=== PATIENT | male | born 1980 | race Caucasian/White ===

== ENCOUNTER 2022-06-09 22:23 | Emergency (ER) | payer MEDICAID ==
[~2022-06-09] VITALS: Ht 175.3 cm; Wt 120.2 kg
[2022-06-09 22:29] VITALS: BP 115/50
--- NOTE | 2022-06-10 01:47 | NUR ---
Dr. Nugent examining patient.
[2022-06-10] MEDS ORDERED: cefTRIAXone 1,000 MG in LIDOCAINE MPF 1% 2.1 ML IM ONE (01:50)
[2022-06-10] MEDS ORDERED: LIDOCAINE MPF 1% 5 ML ONE (02:00)
[2022-06-10] MEDS ORDERED: cefTRIAXone 1,000 MG VIAL ONE (02:00)
[2022-06-10] MEDS ORDERED: AMOX1TAB8 PO (02:39)
[2022-06-10 02:45] VITALS: BP 117/65
--- NOTE | 2022-06-10 02:45 | NUR ---
Patient discharged with v/s stable by Dr. Nugent. Written and verbal after care instructions given and explained. Patient alert, oriented and verbalized understanding of instructions. Ambulatory with steady gait. All questions addressed prior to discharge. ID band removed. Patient advised to follow up with PMD. Rx of Amox-clav given. Patient educated on indication of medication including possible reaction and side effects. Opportunity to ask questions provided and answered.
== END 2022-06-10 02:45 | disposition home or self-care (01) ==
LOC: MED 22:23
DX: J02.9 Acute pharyngitis, unspecified (principal); Z79.2 Long term (current) use of antibiotics
CPT/HCPCS: 96372; 99283; J0696; J2001